=== PATIENT | female | born 1995 | race Caucasian/White ===

== ENCOUNTER 2017-02-07 23:59 | Emergency (ER) | payer SELFPAY ==
[~2017-02-07] VITALS: Ht 170.2 cm; Wt 63.6 kg
[2017-02-08 00:11] VITALS: BP 140/84; PULSE 98; RESP 16; TEMP 98; O2SAT 98
[2017-02-08] MEDS: DIPHTH/TETANUS/ACEL PERTUSSIS (BOOSTER) 0.5 ML VIAL/PFS IM ONE ×2 (00:15→00:44)
--- NOTE | 2017-02-08 00:22 | PD ---
HPI Chief Complaint: Psychiatric Symptoms Time Seen by Provider: 00:13 Travel History International Travel<30 days: No Contact w/Intl Traveler<30days: No Traveled to known affect area: No History of Present Illness HPI 21-year-old white female presents to emergency department under [place] act by PD. The patient allegedly had cut her left wrist with a razor because she was upset with her friends because it would not take her to get drugs. The patient is visiting from [place]. She is a IV heroin abuser. She has been drinking alcohol this evening. She states that she's not truly suicidal. She denies any homicidal ideation. She denies any toxic ingestions. She also states that she is an insulin-dependent diabetic. She is unsure of her last tetanus shot. She complains of pain to the left forearm. No other injuries. PFSH Past Medical History Narrative Medical IDDM, IVDA Tetanus Vaccination: > 5 Years (right index) Past Surgical History Narrative Surgical Tonsillectomy and adenoidectomy, Social History Alcohol Use: Yes Tobacco Use: Yes Substance Use: Yes (IV heroin) Allergies-Medications (Allergen,Severity, Reaction): Coded Allergies: No Known Allergies (Unverified , 02/08/17) Reported Meds & Prescriptions Reported Meds & Active Scripts Active Reported Alprazolam 1 Mg Tab 1 Mg PO Q8H PRN Valtrex (Valacyclovir HCl) 500 Mg Tab 500 Mg PO DAILY Lantus Inj (Insulin Glargine) 1,000 Unit/10 Ml Vial 24 Units SQ HS Humalog Inj (Insulin Human Lispro) 1,000 Unit/10 Ml Vial 1-9 Units SQ ACHS Max dose at bedtime:( )units; sugars< 70,(0)units; sugars 150-199,(1)unit; sugars 200-249,(3)units; sugars 250-299,(5)units; sugars 300-349,(7)units; sugars more than 349,(9)units. Review of Systems ROS Limitations: Intoxication Except as stated in HPI: all other systems reviewed are Neg Physical Exam Narrative GENERAL: Well-nourished, well-developed patient. Patient smells of EtOH and has very slurred speech. SKIN: Warm and dry. Patient has superficial razor cuts to the left forearm. There are no suturable lacerations. HEAD: Normocephalic and atraumatic. EYES: No scleral icterus. No injection or drainage. ENT: No nasal drainage noted. Mucous membranes pink. Airway patent. NECK: Supple, trachea midline. Moves head freely without obvious discomfort. CARDIOVASCULAR: Regular rate and rhythm without murmurs, gallops, or rubs. RESPIRATORY: Breath sounds equal bilaterally. No accessory muscle use. GASTROINTESTINAL: Abdomen soft, non-tender, nondistended. EXTREMITIES: No cyanosis or edema. BACK: Nontender without obvious deformity. No CVA tenderness. NEURO: Patient is alert and oriented. no sensorimotor deficits. Ataxic secondary to alcohol and slurred speech. PSYCH: No delusions. No auditory or visual hallucinations. Data Data Last Documented VS Vital Signs Date Time Temp Pulse Resp B/P Pulse Ox O2 Delivery O2 Flow Rate FiO2 02/08/17 00:11 98.0 98 16 140/84 98 Orders Complete Blood Count With Diff (02/08/17 00:05) Comprehensive Metabolic Panel (02/08/17 00:05) Ed Urine Pregnancytest Poc (02/08/17 00:05) Psych Screen (02/08/17 00:05) Drug Screen, Random Urine (02/08/17 00:05) Alcohol (Ethanol) (02/08/17 00:05) Salicylates (Aspirin) (02/08/17 00:05) Tylenol (Acetaminophen) (02/08/17 00:05) [id number] (Booster) Inj (Boostrix (02/08/17 00:15) Insulin Human Regular Inj (Novolin R Inj (02/08/17 02:15) Potassium Chloride (Kcl) (02/08/17 02:30) Oral Rehydration (02/08/17 02:20) Acetaminophen (Tylenol) (02/08/17 02:30) Labs Laboratory Tests Test 02/08/17 00:30 White Blood Count 7.4 TH/MM3 Red Blood Count 4.74 MIL/MM3 Hemoglobin 13.8 GM/DL Hematocrit 41.7 % Mean Corpuscular Volume 88.0 FL Mean Corpuscular Hemoglobin 29.2 PG Mean Corpuscular Hemoglobin 33.2 % Concent Red Cell Distribution Width 14.6 % Platelet Count 245 TH/MM3 Mean Platelet Volume 7.1 FL Neutrophils (%) (Auto) 60.0 % Lymphocytes (%) (Auto) 32.9 % Monocytes (%) (Auto) 5.0 % Eosinophils (%) (Auto) 1.1 % Basophils (%) (Auto) 1.0 % Neutrophils # (Auto) 4.4 TH/MM3 Lymphocytes # (Auto) 2.4 TH/MM3 Monocytes # (Auto) 0.4 TH/MM3 Eosinophils # (Auto) 0.1 TH/MM3 Basophils # (Auto) 0.1 TH/MM3 CBC Comment DIFF FINAL Differential Comment Sodium Level 142 MEQ/L Potassium Level 3.3 MEQ/L Chloride Level 107 MEQ/L Carbon Dioxide Level 25.6 MEQ/L Anion Gap 9 MEQ/L Blood Urea Nitrogen 13 MG/DL Creatinine 1.26 MG/DL Estimat Glomerular Filtration 53 ML/MIN Rate Random Glucose 317 MG/DL Calcium Level 8.5 MG/DL Total Bilirubin 0.3 MG/DL Aspartate Amino Transf 8 U/L (AST/SGOT) Alanine Aminotransferase 15 U/L (ALT/SGPT) Alkaline Phosphatase 133 U/L Total Protein 7.4 GM/DL Albumin 3.7 GM/DL Salicylates Level 2.4 MG/DL Acetaminophen Level LESS THAN 2.0 MCG/ML Ethyl Alcohol Level 118 MG/DL MDM Medical Decision Making Medical Screen Exam Complete: Yes Emergency Medical Condition: Yes Medical Record Reviewed: Yes Interpretation(s) CBC & BMP Diagram 02/08/17 00:30 Differential Diagnosis MDM: High Differential diagnoses: Schizophrenia, schizoaffective disorder, bipolar, anxiety, depression, adjustment reaction, mood disorder NOS, ODD, depressive disorder NOS, dementia, dementia with agitation, psychosis NOS, substance induced mood disorder, intermittent explosive disorder, Asperger syndrome, infection,electrolyte abnormality, malingering. Narrative Course Mental health screening discussed with the patient. Psychiatric screen ordered. The patient's tetanus status is updated. Wound is cleansed and dressed by the nursing staff. Routine labs sent for analysis. The patient's been medically cleared. The patient has declined her tetanus, she has also declined to take her additional insulin or potassium. She states that if she does not get anything for pain she will not take any medications. Patient's injuries are very minor and do not require opiates. I've offered her 650 mg of Tylenol. This is medical clearance for psychiatric admission, substance induced mood disorder, and polysubstance abuse Diagnosis Primary Impression: Medical clearance for psychiatric admission Additional Impressions: Substance induced mood disorder Polysubstance abuse IDDM (insulin dependent diabetes mellitus) Condition: Stable Sriram Levy Feb 08, 2017 00:22
[2017-02-08] MEDS ORDERED: VALT500T PO (00:27)
[2017-02-08] MEDS ORDERED: ALPR1TAB3 PO (00:27)
[2017-02-08] MEDS ORDERED: LANTUS2P SQ (00:27)
[2017-02-08] MEDS ORDERED: HUMALOG SQ (00:27)
[2017-02-08 01:09] LABS: AUTOMATED NEUTROPHIL # 4.4 TH/MM3 (1.8-7.7); BASOPHIL # 0.1 TH/MM3 (0-0.2); EOSINOPHIL # 0.1 TH/MM3 (0-0.4); EOSINOPHIL % 1.1 % (0.0-4.0); HEMATOCRIT 41.7 % (35.0-46.0); HEMO FLAGS DIFF FINAL; LYMPH % 32.9 % (9.0-44.0); LYMPHOCYTE # 2.4 TH/MM3 (1.0-4.8); MEAN CORPUSCULAR HEMOGLOBIN 29.2 PG (27.0-34.0); MEAN CORPUSCULAR HGB CONC 33.2 % (32.0-36.0); PLATELET COUNT 245 TH/MM3 (150-450); RED BLOOD COUNT 4.74 MIL/MM3 (4.00-5.30); RED CELL DISTRIBUTION WIDTH 14.6 % (11.6-17.2); WHITE BLOOD COUNT 7.4 TH/MM3 (4.0-11.0)
[2017-02-08 01:31] LABS: ALT (GPT) 15 U/L (10-53); ANION GAP 9 MEQ/L (5-15); AST (GOT) 8 U/L (15-37); BICARBONATE 25.6 MEQ/L (21.0-32.0); BLOOD UREA NITROGEN 13 MG/DL (7-18); CHLORIDE 107 MEQ/L (98-107); GLOMERULAR FILTRATION RATE 53 ML/MIN (>89); POTASSIUM 3.3 MEQ/L (3.5-5.1); SODIUM (NA) 142 MEQ/L (136-145)
[2017-02-08 01:34] LABS: ACETAMINOPHEN LESS THAN 2.0 MCG/ML (10.0-30.0); ALCOHOL 118 MG/DL (0-5); ALKALINE PHOSPHATASE 133 U/L (45-117); TOTAL BILIRUBIN ADULT 0.3 MG/DL (0.2-1.0)
[2017-02-08] MEDS ORDERED: INSULIN HUMAN REGULAR 1,000 UNITS/10 ML VIAL SQ ONE (02:15)
[2017-02-08] MEDS ORDERED: POTASSIUM CHLORIDE 20 MEQ CONTROLLED RELEASE TAB PO ONE (02:30)
[2017-02-08] MEDS ORDERED: ACETAMINOPHEN 325 MG TAB PO ONE (02:30)
--- NOTE | 2017-02-08 10:10 | PD.PSY.CON ---
Provisional Diagnosis Admission Date Bivalve I. Polysubstance dependence, including alcohol, cocaine and heroine Bivalve II. Unspecified personality disorder Bivalve III. Diabetes type 1 History of Present Illness Service Psychiatry Consult Requested By Reason for Consult Self cutting behavior Primary Care Physician Unknown HPI The patient is a 21-year-old white woman, domiciled with her grandmother in [place], unemployed, single, with psychiatric history of self cutting behavior, no previous psychiatric hospitalizations, polysubstance dependence, including heroine, cocaine, alcohol, IV drug user, medical history of insulin-dependent diabetes mellitus, who presents to emergency department under Carver act by PD. The patient allegedly had cut her left wrist with a razor because she was upset with her friends because it would not take her to get drugs. She has been drinking alcohol this evening. She states that she's not truly suicidal, "just wanted to make my point clear". At this moment the patient denies depressive symptoms, denies anxiety, denies psychosis. Denies suicidal and homicidal ideation. Patient denies visual and auditory hallucinations. Patient says that she is ashamed of what she did "because I used to cut myself when I was a child and adolescent, but not anymore". At the same time patient reports that she was very high last night "and I did not know what it was doing". Patient reports almost daily use of alcohol, cocaine and heroine IV. She reports multiple detox and rehabilitation programs in the past. She says that prior to last night she was in a to weeks period of sobriety. Review of Systems Constitutional: DENIES: Diaphoretic episodes, Fatigue, Fever, Weight gain, Weight loss, Chills, Dizziness, Change in appetite, Night Sweats Endocrine: DENIES: Abnorml menstrual pattern, Heat/cold intolerance, Polydipsia , Polyuria, Polyphagia Eyes: DENIES: Blurred vision, Diplopia, Eye inflammation, Eye pain, Vision loss , Photosensitivity, Double Vision Ears, nose, mouth, throat: DENIES: Tinnitus, Hearing loss, Vertigo, Nasal discharge, Oral lesions, Throat pain, Hoarseness, Ear Pain, Running Nose, Epistaxis, Sinus Pain, Toothache, Odynophagia Cardiovascular: DENIES: Chest pain, Palpitations, Syncope, Dyspnea on Exertion , PND, Lower Extremity Edema, Orthopnea, Claudication Gastrointestinal: DENIES: Abdominal pain, Black stools, Bloody stools, Constipation, Diarrhea, Nausea, Vomiting, Difficulty Swallowing, Anorexia Musculoskeletal: DENIES: Joint pain, Muscle aches, Stiffness, Joint Swelling, Back pain, Neck pain Integumentary: DENIES: Abnormal pigmentation, Pruritus, Rash, Nail changes, Breast masses, Breast skin changes, Nipple discharge Hematologic/lymphatic: DENIES: Bruising, Lymphadenopathy Immunologic/allergic: DENIES: Eczema, Urticaria Neurologic: DENIES: Abnormal gait, Headache, Localized weakness, Paresthesias, Seizures, Speech Problems, Tremor, Poor Balance Past Family Social History Coded Allergies: No Known Allergies (Unverified , 02/08/17) Reported Medications Alprazolam 1 Mg Tab1 Mg PO Q8H PRN (ANXIETY) Ref 0 02/08/17 Valacyclovir (Valtrex)500 Mg [id number] Mg PO DAILY #30 TAB Ref 0 02/08/17 Insulin Glargine Inj (Lantus Inj)1,000 Unit/10 Ml Vial24 Units SQ HS Ref 0 02/08/17 Insulin Lispro (Human) Inj (Humalog Inj)1,000 Unit/10 Ml Vial1-9 Units SQ ACHS #1 VIAL Ref 0 Max dose at bedtime:( )units; sugars< 70,(0)units; sugars 150-199,(1)unit; sugars 200-249,(3)units; sugars 250-299,(5)units; sugars 300-349,(7)units; sugars more than 349,(9)units. 02/08/17 Family History She denies family psychiatric history Social History Patient was born and raised in [place], she lives in [place], she is visiting family members in [place], she is single, unemployed, supported by grandparents, highest level of education is high school Patient's Strengths (min. 2) Family support Physical Exam Vital Signs Vital Signs Date Time Temp Pulse Resp B/P Pulse Ox O2 Delivery O2 Flow Rate FiO2 02/08/17 00:11 98.0 98 16 140/84 98 Lab Results Labs Laboratory Tests Test 02/08/17 00:30 White Blood Count 7.4 TH/MM3 Red Blood Count 4.74 MIL/MM3 Hemoglobin 13.8 GM/DL Hematocrit 41.7 % Mean Corpuscular Volume 88.0 FL Mean Corpuscular Hemoglobin 29.2 PG Mean Corpuscular Hemoglobin 33.2 % Concent Red Cell Distribution Width 14.6 % Platelet Count 245 TH/MM3 Mean Platelet Volume 7.1 FL Neutrophils (%) (Auto) 60.0 % Lymphocytes (%) (Auto) 32.9 % Monocytes (%) (Auto) 5.0 % Eosinophils (%) (Auto) 1.1 % Basophils (%) (Auto) 1.0 % Neutrophils # (Auto) 4.4 TH/MM3 Lymphocytes # (Auto) 2.4 TH/MM3 Monocytes # (Auto) 0.4 TH/MM3 Eosinophils # (Auto) 0.1 TH/MM3 Basophils # (Auto) 0.1 TH/MM3 CBC Comment DIFF FINAL Differential Comment Sodium Level 142 MEQ/L Potassium Level 3.3 MEQ/L Chloride Level 107 MEQ/L Carbon Dioxide Level 25.6 MEQ/L Anion Gap 9 MEQ/L Blood Urea Nitrogen 13 MG/DL Creatinine 1.26 MG/DL Estimat Glomerular Filtration 53 ML/MIN Rate Random Glucose 317 MG/DL Calcium Level 8.5 MG/DL Total Bilirubin 0.3 MG/DL Aspartate Amino Transf 8 U/L (AST/SGOT) Alanine Aminotransferase 15 U/L (ALT/SGPT) Alkaline Phosphatase 133 U/L Total Protein 7.4 GM/DL Albumin 3.7 GM/DL Salicylates Level 2.4 MG/DL Acetaminophen Level LESS THAN 2.0 MCG/ML Ethyl Alcohol Level 118 MG/DL Mental Status Examination Appearance young lady, multiple superficial lacerations in her left arm, she is calm and cooperative Speech: Unremarkable Orientation: x3 Memory: Unremarkable Thought Process: Logical Thought Content: Unremarkable Hallucination Type: None Suicidal Ideation: No Previous Suicide Attempts: Yes Homicidal Ideation: No Previous Homicide Attempts: Yes Affect: Good Mood: Appropriate Motor Activity: Normal gait Assessment & Plan Problem List: (1) Substance induced mood disorder Assessment & Plan: On psychiatric evaluation today the patient does not present any significant evidence of increased risk of danger to self and others. She denies depressive symptoms, she denies anxiety, she denies psychosis, she denies jossue. Patient denies suicidal or homicidal ideation. Patient denies visual and auditory hallucinations. Patient has an extensive history of self cutting behavior and polysubstance dependence. Recent episode of self cutting with the intention to manipulate and to "make up a point" in the context of alcohol, cocaine and cannabis intoxication does not seem to be a suicidal attempt, but a pervasive pathologic coping mechanism of anxiety. Patient does not meet criteria for psychiatric admission at this moment. Support, motivation and psychoeducation provided. Carver act will be lifted. ICD Code: F19.94 Assessment & Plan Estimated LOS: days Jarek Delvalle MD Feb 08, 2017 10:10
== END 2017-02-08 11:43 | disposition home or self-care (01) ==
LOC: NEPD 23:59
DX: F19.94 Other psychoactive substance use, unspecified with psychoactive substance-induced mood disorder (principal); F11.10 Opioid abuse, uncomplicated; E11.9 Type 2 diabetes mellitus without complications; Z72.0 Tobacco use; Z79.4 Long term (current) use of insulin; Z79.899 Other long term (current) drug therapy
CPT/HCPCS: 80053; 80307; 85025; 96372; 99284; J1815; 90715